=== PATIENT | male | born 1980 | race Native Hawaiian/Other Pacific Islander ===

== ENCOUNTER 2021-06-19 19:25 | Emergency (ER) | payer OTHER ==
[~2021-06-19] VITALS: Ht 175.3 cm; Wt 79.4 kg
[2021-06-19 20:09] LABS: PLATELET COUNT 103 K/uL (142-355)
[2021-06-19 20:22] LABS: POTASSIUM 3.1 mmol/L (3.6-5.2)
[2021-06-19 23:30] VITALS: BP 122/72; TEMP 97.5
== END 2021-06-19 23:30 | disposition short-term general hospital (02) ==
LOC: ED 19:32
PROVIDERS: Emergency Medicine
DX: S42.291A Other displaced fracture of upper end of right humerus, initial encounter for closed fracture (principal); R56.9 Unspecified convulsions; X58.XXXA Exposure to other specified factors, initial encounter; Y93.I9 Activity, other involving external motion; Y92.812 Truck as the place of occurrence of the external cause
CPT/HCPCS: 80053; 80307; 81000; 82550; 83605; 85027; 93005; 96360; 96375; 99284; J1170; J1885; J2270; J2405